=== PATIENT | male | born 1950 | race Caucasian/White ===

== ENCOUNTER 2018-11-23 07:20 | Day surgery (SDC) | payer OTHER ==
[2018-11-21 16:26] VITALS: BP 119/80
[2018-11-21 16:33] LABS: APPEARANCE,URINE Cloudy (CLEAR); BILIRUBIN,URINE Negative (NEGATIVE); COLOR,URINE Yellow (YELLOW); GLUCOSE, URINE (UA) Negative (NEGATIVE); KETONES,URINE Negative (NEGATIVE); LEUKOCYTE ESTERASE ,URINE Negative (NEGATIVE); NITRATE,URINE Negative (NEGATIVE); OCCULT BLOOD,URINE Negative (NEGATIVE); PROTEIN,URINE Negative (NEGATIVE)
[2018-11-21 16:34] LABS: EOSINOPHILS % (AUTO) 1.8 % (0.0-8.0); LYMPHOCYTES % (AUTO) 25.8 % (21.0-51.0); MEAN CORPUSCULAR HEMOGLOBIN 31.7 pg (27.0-33.0); MEAN CORPUSCULAR HGB CONC 34.2 g/dL (32.0-36.0); MEAN CORPUSCULAR VOLUME 92.9 fL (79-99); MONOCYTES % (AUTO) 9.6 % (3.0-13.0); NEUTROPHILS % (AUTO) 61.8 % (40.0-77.0); NUCLEATED RED BLOOD CELLS 0.1 % (0.0-0.19); PLATELET COUNT (AUTO) 237 K/uL (130-400); RED CELL DISTRIBUTION WIDTH 13.9 % (11.0-15.5); WHITE BLOOD COUNT (AUTO) 11.7 K/uL (4.8-10.8)
[2018-11-21 16:48] LABS: CREATININE 1.1 mg/dL (0.5-1.5); POTASSIUM 4.3 mmol/L (3.5-5.1)
[2018-11-21 16:55] LABS: AMORPHOUS SEDIMENT,UR Moderate /LPF (None Seen); BACTERIA,URINE Rare /HPF (None Seen); MUCUS,URINE None Seen LPF (None Seen); RBC,URINE 0-1 /HPF (0-1); SQUAMOUS EPITHELIAL CELL,UR 0-2 /HPF (0-2)
--- NOTE | 2018-11-21 16:57 | NUR ---
EKG ABNORMAL EKG REPORTED TO DR. PENN NO FURTHER ORDERS GIVEN , OK TO PROCEED WITH SCHEDULED PROCEDURE
--- NOTE | 2018-11-22 16:16 | NUR ---
SPOKE WITH DR. CH ABOUT WBC NO NEW ORDERS CONTINUE WITH PROCEDURE.
[~2018-11-23] VITALS: Ht 167.6 cm; Wt 70.9 kg
[2018-11-23] VITALS (17 sets, daily range): BP systolic 126–157; BP diastolic 71–91
[~2018-11-23 07:20] MED LIST: ASPI-555 PO; ATOR10 PO; CYAN-35 PO; HYDR25TA PO; VITAMIN D3 PO
[2018-11-23] MEDS ORDERED: LACTATED RINGERS 1000ML 1,000 ML IV SCH (08:00)
[2018-11-23] MEDS ORDERED: LIDOCAINE PF 2% 5ML ABBOJECT ONE (08:54)
[2018-11-23] MEDS ORDERED: FENTANYL CITRATE PF 50 MCG/1 ML 2ML VIAL ONE (08:54)
[2018-11-23] MEDS ORDERED: MIDAZOLAM HCL 1 MG/ML 2ML VIAL ONE (08:54)
[2018-11-23] MEDS ORDERED: PROPOFOL 10 MG/ML 20ML VIAL IV ONE (08:54)
[2018-11-23] MEDS ORDERED: ROCURONIUM 10MG/1ML SYR 10 MG/ML ML ONE (08:54)
[2018-11-23] MEDS ORDERED: EPHEDRINE SULFATE 50 MG/ML AMPULE ONE (10:41)
[2018-11-23] MEDS ORDERED: NEOSTIGMINE 5MG/5ML SYR IV ONE (10:55)
[2018-11-23] MEDS ORDERED: GLYCOPYRROLATE 1 MG/5 ML SYRINGE ONE (10:55)
[2018-11-23] MEDS ORDERED: ONDANSETRON HCL 4 MG/2 ML VIAL ONE (10:57)
[2018-11-23] MEDS ORDERED: ROPIVACAINE 0.5% 5MG/ML 30ML IJ ONE (11:24)
--- NOTE | 2018-11-23 13:05 | NUR ---
PATIENT ARRIVED TO DAY PATIENT FROM PACU VIA STRETCHER BY ERIC MICHELE. PATIENT [id number], RESPIRATIONS UNLABORED, VITAL SIGNS STALE, DENIES ANY PAIN AT THIS TIME. DRESSING TO LEFT LOWER QUADRANT IS DRY AND INTACT, NO DRAINAGE OR BLEEDING NOTED. SIDERAILS UP X2, BED IN LOWEST POSITION, CALL COOK IN REACH.
--- NOTE | 2018-11-23 13:45 | NUR ---
DISCHARGE INSTRUCTIONS GIVEN TO PATIENT'S SPOUSE AND FOLLOW UP APPOINTMENT WITH DR CH PROVIDED. INSTRUCTED ON S/S TO MONITOR FOR AND REPORT TO MD. HANDOUTS PROVIDED ON DISCHARGE INSTRUCTIONS. ALL QUESTIONS/CONCERNS ADDRESSED, PATIENT'S VERBALIZED UNDERSTANDING.
--- NOTE | 2018-11-23 14:00 | NUR ---
PATIENT DISCHARGED FROM HOSPITAL VIA WHEELCHAIR BY LUCITA LOCKHART RN. PATIENT ABLE TO GET INTO PRIVATE VEHICLE UNASSISTED AND DRIVEN BY SPOUSE.
== END 2018-11-23 14:00 | disposition home or self-care (01) ==
LOC: DAH 07:20 → EDSEX 15:00
PROVIDERS: ATTEND Surgery
DX: K40.90 Unilateral inguinal hernia, without obstruction or gangrene, not specified as recurrent (principal); I10 Essential (primary) hypertension; F17.210 Nicotine dependence, cigarettes, uncomplicated; E66.3 Overweight; E78.5 Hyperlipidemia, unspecified; Z98.890 Other specified postprocedural states; Z79.82 Long term (current) use of aspirin; Z79.899 Other long term (current) drug therapy; Z88.8 Allergy status to other drugs, medicaments and biological substances; Z88.5 Allergy status to narcotic agent; Z68.25 Body mass index [BMI] 25.0-25.9, adult; Z83.3 Family history of diabetes mellitus; Z82.5 Family history of asthma and other chronic lower respiratory diseases
CPT/HCPCS: 36415; 49505; 70360; 71045; 80048; 81001; 85025; 93005; A4215; A4216; A4221; A4222; A4223 ×3; A4450; A4452; A4606; A4663; A6260; C1729; C1781; J2250; J2405; J2704; J2710; J2795; J3010; J3490 ×2; J7120; J2001